=== PATIENT | female | born 1980 | race Native Hawaiian/Other Pacific Islander ===

== ENCOUNTER 2017-04-13 10:03 | Outpatient (CLI) | payer OTHER | END 2017-04-13 19:01 | disposition home or self-care (01) | LOC: RAD 10:03 | DX: J20.8 Acute bronchitis due to other specified organisms (principal) ==

== ENCOUNTER 2018-04-25 15:42 | Observation (INO) | payer OTHER ==
[~2018-04-25] VITALS: Ht 157.5 cm; Wt 99.9 kg
[2018-04-25 17:15] LABS: PLATELET COUNT 255 K/uL (152-353)
[2018-04-25 17:17] VITALS: BP 139/67; TEMP 97.7; Ht 157.5 cm; Wt 99.9 kg
[2018-04-25 17:37] LABS: PARTIAL THROMBOPLASTIN TIME 24.1 SECONDS (24.5-33.6)
[2018-04-25 17:56] LABS: POTASSIUM 3.8 mmol/L (3.6-5.2); SODIUM 134 mmol/L (136-145)
[2018-04-25] MEDS ORDERED: RANI150T78 PO (18:48)
[2018-04-25] MEDS ORDERED: LISITAB PO (18:48)
[2018-04-25] MEDS ORDERED: LIPITOR10 MG PO (18:49)
[2018-04-25] MEDS ORDERED: CITALOPRAM40 MG PO (18:50)
[2018-04-25] MEDS ORDERED: CETI10TA PO (18:50)
[2018-04-25] MEDS ORDERED: PROGESTERONE100 MG PO (18:52)
[2018-04-25] MEDS ORDERED: NP THYROID30 MG PO (18:53)
[2018-04-25 20:00] VITALS: BP 146/82; TEMP 98.2
[2018-04-26] VITALS: BP 115/68; TEMP 98
[2018-04-26 04:00] VITALS: BP 127/86; TEMP 98.4
[2018-04-26 08:00] VITALS: BP 140/81; TEMP 97.8
[2018-04-26 12:00] VITALS: BP 144/92; TEMP 97.9
[2018-04-26 16:00] VITALS: BP 145/85; TEMP 97.5
== END 2018-04-26 19:05 | disposition home or self-care (01) ==
LOC: MED/SURG 15:42
PROVIDERS: ADMIT Family Medicine
DX: R07.89 Other chest pain (principal); R53.83 Other fatigue; H11.31 Conjunctival hemorrhage, right eye
CPT/HCPCS: 36591; 80053; 82550; 83605; 83880; 84443; 84484; 85027; 85610; 85730; 93005; 96372; 99220; G0378; G0379; J1650

== ENCOUNTER 2018-12-14 18:36 | Outpatient (CLI) | payer OTHER ==
[~2018-12-14 18:36] MED LIST: CETI10TA PO; CITALOPRAM40 MG PO; LIPITOR10 MG PO; LISITAB PO; NP THYROID30 MG PO; PROGESTERONE100 MG PO; RANI150T78 PO
== END 2018-12-14 22:34 | disposition home or self-care (01) ==
LOC: LAB 18:36
DX: N91.1 Secondary amenorrhea (principal)
CPT/HCPCS: 84702

== ENCOUNTER 2018-12-16 09:50 | Outpatient (CLI) | payer OTHER | END 2018-12-16 23:19 | disposition home or self-care (01) | LOC: LABW 09:50 | DX: O36.80X9 Pregnancy with inconclusive fetal viability, other fetus (principal) | CPT/HCPCS: 84702 ==

== ENCOUNTER 2018-12-19 09:37 | Outpatient (CLI) | payer OTHER | END 2018-12-19 22:45 | disposition home or self-care (01) | LOC: LABW 09:37 → US 09:37 → LABW 22:45 | DX: O36.80X9 Pregnancy with inconclusive fetal viability, other fetus (principal) | CPT/HCPCS: 84702 ==

== ENCOUNTER 2019-09-15 11:03 | Outpatient (CLI) | payer OTHER | END 2019-09-15 21:19 | disposition home or self-care (01) | LOC: RAD 11:03 | DX: M54.5 Low back pain (principal); M25.552 Pain in left hip ==

== ENCOUNTER 2019-09-29 11:22 | Outpatient (CLI) | payer OTHER | END 2019-09-29 19:43 | disposition home or self-care (01) | LOC: RAD 11:22 | DX: M54.2 Cervicalgia (principal) ==

== ENCOUNTER 2020-06-13 15:42 | Observation (INO) | payer OTHER ==
[~2020-06-13] VITALS: Ht 157.5 cm; Wt 93.6 kg
[2020-06-13 17:28] LABS: PLATELET COUNT 285 K/uL (152-353)
[2020-06-13 17:37] LABS: POTASSIUM 3.2 mmol/L (3.6-5.2)
[2020-06-13 17:55] VITALS: BP 143/80; TEMP 98.6; Ht 157.5 cm; Wt 93.6 kg
[2020-06-13] MEDS ORDERED: LIPITOR20 MG PO (18:01)
[2020-06-13] MEDS ORDERED: GLIP10TA55 PO (18:02)
[2020-06-13] MEDS ORDERED: VENLAFAXINE75 M2 PO (18:03)
[2020-06-13] MEDS ORDERED: ALLERGY RELIEF180 MG PO (18:04)
[2020-06-13] MEDS ORDERED: ASA LOW DOSE81 MG PO (18:04)
[2020-06-13] MEDS ORDERED: METF500T PO (18:05)
[2020-06-13] MEDS ORDERED: CVS SENNA8.6 MG PO (18:06)
[2020-06-13] MEDS ORDERED: DICLOFENAC POTA50 MG PO (18:07)
[2020-06-13] MEDS ORDERED: CYCLOBENZAPRINE10 MG PO (18:07)
[2020-06-13] MEDS ORDERED: ADDERALL20 MG PO (18:08)
[2020-06-13] MEDS ORDERED: LISI20TA31 PO (18:11)
[2020-06-13 20:00] VITALS: BP 113/61; TEMP 98.9
[2020-06-14] VITALS: BP 121/67; TEMP 98.3
[2020-06-14 04:00] VITALS: BP 128/83; TEMP 98.6
[2020-06-14 05:02] LABS: PLATELET COUNT 273 K/uL (152-353)
[2020-06-14 05:10] LABS: POTASSIUM 4.2 mmol/L (3.6-5.2)
[2020-06-14 08:00] VITALS: BP 141/73; TEMP 97.5
[2020-06-14 12:00] VITALS: BP 121/65; TEMP 98.3
[2020-06-14 16:00] VITALS: BP 125/70; TEMP 97.9
[2020-06-14 20:00] VITALS: BP 124/70; TEMP 99.3
[2020-06-15] VITALS: BP 107/62; TEMP 99.6
[2020-06-15 04:00] VITALS: BP 178/67; TEMP 98.6
[2020-06-15 05:36] LABS: PLATELET COUNT 279 K/uL (152-353)
[2020-06-15 08:00] VITALS: BP 116/70; TEMP 98
[2020-06-15 11:14] VITALS: BP 120/72; TEMP 98.1
[2020-06-15 12:00] VITALS: BP 120/72; TEMP 98.1
[2020-06-15 15:56] VITALS: BP 125/65; TEMP 97.9
== END 2020-06-15 18:20 | disposition home or self-care (01) ==
LOC: MED/SURG 15:42
PROVIDERS: ADMIT Family Medicine
DX: L05.91 Pilonidal cyst without abscess (principal); F17.200 Nicotine dependence, unspecified, uncomplicated; D72.828 Other elevated white blood cell count; E66.8 Other obesity; E03.8 Other specified hypothyroidism; E11.9 Type 2 diabetes mellitus without complications; F32.89 Other specified depressive episodes
CPT/HCPCS: 36415; 80053; 81000; 82948; 85027; 87040; 93005; 96365; 96366; 96367; 96372; 96375; 99220; G0378; G0379; J1815; J2270; J2405; J2543

== ENCOUNTER 2021-09-05 13:36 | Outpatient (CLI) | payer OTHER ==
[~2021-09-05] VITALS: Ht 160 cm; Wt 95.3 kg
[~2021-09-05 13:36] MED LIST changes: +ADDERALL20 MG PO; +ALLERGY RELIEF180 MG PO; +ASA LOW DOSE81 MG PO; +CVS SENNA8.6 MG PO; +CYCLOBENZAPRINE10 MG PO; +DICLOFENAC POTA50 MG PO; +GLIP10TA55 PO; +LIPITOR20 MG PO; +LISI20TA31 PO; +METF500T PO; +VENLAFAXINE75 M2 PO
== END 2021-09-05 23:11 | disposition home or self-care (01) ==
LOC: INF 13:36
PROVIDERS: ATTEND Nurse Practitioner Family
DX: U07.1 COVID-19 (principal); Z23 Encounter for immunization
CPT/HCPCS: 96365; Q0247

== ENCOUNTER 2022-12-01 11:54 | Emergency (ER) | payer OTHER ==
[~2022-12-01] VITALS: Ht 157.5 cm; Wt 83.5 kg
[2022-12-01 12:00] VITALS: TEMP 98
[2022-12-01 12:54] LABS: PLATELET COUNT 320 K/uL (152-353)
[2022-12-01 13:03] LABS: POTASSIUM 4.6 mmol/L (3.6-5.2)
[2022-12-01 14:40] VITALS: BP 140/70
== END 2022-12-01 14:15 | disposition home or self-care (01) ==
LOC: ED 11:54
PROVIDERS: Emergency Medicine
DX: I95.1 Orthostatic hypotension (principal); J32.9 Chronic sinusitis, unspecified
CPT/HCPCS: 36415; 80053; 81002; 85027; 96361; 96374; 99284; J1885